=== PATIENT | female | born 1985 | race African-American/Black ===

== ENCOUNTER 2025-07-29 13:16 | Inpatient (IN) | payer SELFPAY ==
[~2025-07-29 13:16] MED LIST: Iopamidol 300 61% 100 ML VIAL FS ONE
[2025-07-29] MEDS ORDERED: Cefepime 2 GM VIAL ONE (15:32)
[2025-07-29 16:21] LABS: #Basophils 0.04 10x3/uL (0.0-0.2); #Eosinophils 0.57 10x3/uL (0.0-0.5); #Monocytes 0.73 10x3/uL (0.0-1.1); #Neutrophils 4.47 10x3/uL (1.5-8.4); %Basophils 0.5 % (0.0-2.0); %Eosinophils 7.2 % (0.0-6.0); %Lymphocytes 26.3 % (18.0-47.0); %Monocytes 9.2 % (0.0-10.0); %Neutrophils 56.4 % (40.0-75.0); Hematocrit 41.4 % (34.9-44.5); Hemoglobin 12.9 g/dL (12.0-15.5); Mean Corpuscular Hemoglobin 25.3 pg (27.0-33.0); Mean Corpuscular Volume 81.2 fL (81.6-98.3); Platelet Count 270 10x3/uL (150-450); Red Blood Cell (RBC) Count 5.10 10x6/uL (3.90-5.03); White Blood Cell (WBC) Count 7.92 10x3/uL (3.5-10.5)
[2025-07-29 16:57] LABS: ALT (SGPT) 24 U/L (Less than 34); AST (SGOT) 23 U/L (11-34); Albumin 3.6 g/dL (3.1-4.5); Alkaline Phosphatase 99 U/L (40-110); Anion Gap 17 mmol/L (10-20); BUN (Urea Nitrogen) 20 mg/dL (7.0-18.7); Bilirubin, Total 0.3 mg/dL (0.3-1.2); CK (CPK) 150 U/L (29-168); Calc. Creatinine Clearance 90 mL/min (70-130); Calcium 9.3 mg/dL (7.8-10.44); Carbon Dioxide 21 mmol/L (22-29); Chloride 106 mmol/L (98-107); Globulin 3.6 g/dL (2.4-3.5); Glucose 96 mg/dL (70-105); Potassium 4.1 mmol/L (3.5-5.1); Sodium 140 mmol/L (136-145)
[2025-07-29 17:03] LABS: Troponin I Less than 0.010 ng/mL (< 0.028)
[2025-07-29] MEDS ORDERED: hydrALAZINE 20 MG/ML VIAL ONE ×2 (17:19→17:40)
[2025-07-29] MEDS ORDERED: Ondansetron PF 4 MG/2 ML Vial IVP PRN (17:53)
[2025-07-29] MEDS ORDERED: Acetaminophen 500 MG TAB ONE (18:14)
[2025-07-29] MEDS ORDERED: diphenhydrAMINE 50 MG/ML VIAL ONE (19:27)
[2025-07-29] MEDS ORDERED: Metoclopramide HCl 10 MG (2 mL) VIAL ONE (19:27)
[2025-07-29] MEDS: NIFEdipine XL 30 MG ER.TAB PO SCH (20:48)
[2025-07-29] MEDS: Carvedilol 6.25 MG TAB PO SCH (20:48)
[2025-07-29] MEDS: ALPRAZolam 0.5 MG TAB PO PRN (20:49)
[2025-07-29 20:59] VITALS: BMI 33.5
[2025-07-29] MEDS: hydrALAZINE 20 MG/ML VIAL SLOW IVP PRN (21:53)
[2025-07-29] MEDS: Acetaminophen/Codeine 30-300mg Tablet PO PRN (23:31)
[2025-07-30 00:47] LABS: Cocaine Metabolite Screen Negative (Negative); THC/Cannabinoid Screen Negative (Negative); Tricyclic Screen Negative (Negative)
[2025-07-30] MEDS: Acetaminophen 325 MG TAB PO PRN (04:10)
[2025-07-30 04:42] LABS: #Basophils 0.04 10x3/uL (0.0-0.2); #Eosinophils 0.28 10x3/uL (0.0-0.5); #Monocytes 0.69 10x3/uL (0.0-1.1); #Neutrophils 9.48 10x3/uL (1.5-8.4); %Basophils 0.3 % (0.0-2.0); %Eosinophils 2.3 % (0.0-6.0); %Lymphocytes 12.0 % (18.0-47.0); %Monocytes 5.8 % (0.0-10.0); %Neutrophils 79.2 % (40.0-75.0); Hematocrit 41.0 % (34.9-44.5); Hemoglobin 13.4 g/dL (12.0-15.5); Mean Corpuscular Hemoglobin 26.0 pg (27.0-33.0); Mean Corpuscular Volume 79.5 fL (81.6-98.3); Platelet Count 270 10x3/uL (150-450); Red Blood Cell (RBC) Count 5.16 10x6/uL (3.90-5.03); White Blood Cell (WBC) Count 11.98 10x3/uL (3.5-10.5)
[2025-07-30 04:55] LABS: Vancomycin, Random 16.0 ug/mL (See Comment)
[2025-07-30 04:58] LABS: Anion Gap 13 mmol/L (10-20); BUN (Urea Nitrogen) 11 mg/dL (7.0-18.7); Calc. Creatinine Clearance 126 mL/min (70-130); Calcium 9.9 mg/dL (7.8-10.44); Carbon Dioxide 23 mmol/L (22-29); Cardiac Risk 3.5 (Less than 4.5); Chloride 103 mmol/L (98-107); Cholesterol 135 mg/dl (< 200 Desired); Glucose 129 mg/dL (70-105); HDL Cholesterol 39 mg/dL (>60 Neg Risk); LDL Cholesterol, Calculated 87 mg/dL; Potassium 3.6 mmol/L (3.5-5.1); Sodium 135 mmol/L (136-145); Triglycerides 44 mg/dL (Less than 150)
[2025-07-30] MEDS: Carvedilol 6.25 MG TAB PO SCH (09:12)
[2025-07-30] MEDS: NIFEdipine XL 30 MG ER.TAB PO SCH (09:13)
[2025-07-30] MEDS: Vancomycin 1 GM in Sodium Chloride 0.9% 250 ML 250 ML IVPB SCH ×2 (09:13→21:17)
[2025-07-30] MEDS: Ketorolac Tromethamine 30 MG (1 mL) VIAL IVP SCH (09:52)
[2025-07-30] MEDS ORDERED: VANCOMYCIN 1.5 GM, Admixture Fee 1 EACH in Sodium Chloride 0.9% 500 ML IVPB SCH (12:00)
[2025-07-30] MEDS: Carvedilol 25 MG TAB PO SCH (17:18)
[2025-07-31 05:31] LABS: BUN (Urea Nitrogen) 13.0 mg/dL (7.0-18.7); Calc. Creatinine Clearance 113.0 mL/min (70-130); Vancomycin, Random 19.4 ug/mL (See Comment)
[2025-07-31] MEDS: Ketorolac Tromethamine 30 MG (1 mL) VIAL IVP PRN (06:53)
[2025-07-31] MEDS: Vancomycin HCl 750 MG in Sodium Chloride 0.9% 250 ML 250 ML IVPB SCH (08:49)
[2025-08-01 04:41] LABS: #Basophils 0.08 10x3/uL (0.0-0.2); #Eosinophils 0.89 10x3/uL (0.0-0.5); #Monocytes 0.90 10x3/uL (0.0-1.1); #Neutrophils 4.98 10x3/uL (1.5-8.4); %Basophils 0.8 % (0.0-2.0); %Eosinophils 9.2 % (0.0-6.0); %Lymphocytes 28.5 % (18.0-47.0); %Monocytes 9.3 % (0.0-10.0); %Neutrophils 51.5 % (40.0-75.0); Hematocrit 40.2 % (34.9-44.5); Hemoglobin 12.8 g/dL (12.0-15.5); Mean Corpuscular Hemoglobin 25.7 pg (27.0-33.0); Mean Corpuscular Volume 80.6 fL (81.6-98.3); Platelet Count 306 10x3/uL (150-450); Red Blood Cell (RBC) Count 4.99 10x6/uL (3.90-5.03); White Blood Cell (WBC) Count 9.68 10x3/uL (3.5-10.5)
[2025-08-01 05:08] LABS: Anion Gap 11 mmol/L (10-20); BUN (Urea Nitrogen) 12 mg/dL (7.0-18.7); Calc. Creatinine Clearance 118 mL/min (70-130); Calcium 9.0 mg/dL (7.8-10.44); Carbon Dioxide 24 mmol/L (22-29); Chloride 107 mmol/L (98-107); Glucose 99 mg/dL (70-105); Potassium 3.8 mmol/L (3.5-5.1); Sodium 138 mmol/L (136-145)
[2025-08-02 11:49] VITALS: BP 141/101; TEMP 98.1
== END 2025-08-02 12:40 | disposition home or self-care (01) | DRG 603 ==
LOC: CSHERS 13:16 → CSHERHOLD 17:55 → CSHTELE 20:29 → OBSVTOIN 07-30 15:23
PROVIDERS: ADMIT Hospitalist; ATTEND Family Medicine
PROC: 3E03329 Introduction of Other Anti-infective into Peripheral Vein, Percutaneous Approach (ICD-10-PCS; principal; 2025-07-30)
PROC: 05HY33Z Insertion of Infusion Device into Upper Vein, Percutaneous Approach (ICD-10-PCS; 2025-07-31)
PROC: 3E04329 Introduction of Other Anti-infective into Central Vein, Percutaneous Approach (ICD-10-PCS; 2025-07-31)
DX: L03.115 Cellulitis of right lower limb (principal); N17.9 Acute kidney failure, unspecified; F10.90 Alcohol use, unspecified, uncomplicated; F41.9 Anxiety disorder, unspecified; R51.9 Headache, unspecified; I16.0 Hypertensive urgency; I12.9 Hypertensive chronic kidney disease with stage 1 through stage 4 chronic kidney disease, or unspecified chronic kidney disease; N18.2 Chronic kidney disease, stage 2 (mild); W57.XXXA Bitten or stung by nonvenomous insect and other nonvenomous arthropods, initial encounter; Z98.890 Other specified postprocedural states
CPT/HCPCS: 36415; 70450; 80048; 80053; 80061; 80202; 80306; 82550; 82565; 83036; 83605; 84443; 84484; 84520; 85025; 87040; 87077; 87081; 87149; 93005; 96374; 96375; 96376; 97139; G0378; J0360; J0692; J1200; J1885; J2765; J3010; J3373; J7030; J7050; J7120; Q9967

== ENCOUNTER 2025-08-29 14:09 | Emergency (ER) | payer SELFPAY | END 2025-08-29 15:09 | disposition home or self-care (01) | LOC: CSHERS 14:09 | DX: L73.9 Follicular disorder, unspecified (principal) | CPT/HCPCS: 87070; 87077; 87186; 87205; 99283 ==